=== PATIENT | male | born 1945 | race Two or more races ===

== ENCOUNTER 2022-06-26 10:10 | Emergency (ER) | payer OTHER ==
[~2022-06-26] VITALS: Ht 180.3 cm; Wt 96.6 kg
== END 2022-06-26 10:49 | disposition home or self-care (01) ==
LOC: ER 10:10
DX: B02.8 Zoster with other complications (principal); Z88.6 Allergy status to analgesic agent

== ENCOUNTER 2022-07-10 13:21 | Emergency (ER) | payer OTHER ==
[~2022-07-10] VITALS: Ht 185.4 cm; Wt 96.6 kg
[2022-07-10] MEDS ORDERED: METFORMIN HCL500 MG (14:20)
[2022-07-10] MEDS ORDERED: GLIPIZIDE XL10 MG (14:20)
[2022-07-10] MEDS ORDERED: ZESTRIL5 MG (14:20)
[2022-07-10] MEDS ORDERED: TRAMADOL HCL50 MG PO (15:01)
== END 2022-07-10 15:22 | disposition home or self-care (01) ==
LOC: ER 13:21
DX: B02.29 Other postherpetic nervous system involvement (principal); I10 Essential (primary) hypertension; E11.9 Type 2 diabetes mellitus without complications; Z79.84 Long term (current) use of oral hypoglycemic drugs; J43.8 Other emphysema; G47.33 Obstructive sleep apnea (adult) (pediatric); Z88.6 Allergy status to analgesic agent; G58.8 Other specified mononeuropathies